=== PATIENT | female | born 1995 | race Asian ===

== ENCOUNTER 2022-08-26 11:04 | Day surgery (SDC) | payer BC ==
[2022-08-21 14:39] VITALS: BMI 20.7
[2022-08-25 10:23] LABS: Hemoglobin 12.1 g/dL (12.0-15.5); Mean Corpuscular HGB CONC 31.1 g/dL (32.0-36.0); Mean Platelet Volume 10.7 fl (7.4-10.4); Platelet Count 399 10x3/uL (150-450); RBC Distribution Width 14.5 % (11.5-14.5); Red Blood Cell (RBC) Count 5.26 10x6/uL (3.90-5.03); White Blood Cell (WBC) Count 7.6 10x3/uL (3.5-10.5)
[2022-08-25 11:08] LABS: BHCG - Serum Negative (NEGATIVE); Pregs Control Background? CLEAR/WHITE (CLR/WHITE); Pregs Control Bar Appear? YES (CONTROL BAR)
[2022-08-26] MEDS ORDERED: CeleCOXIB 100 MG CAP ONE (11:25)
[2022-08-26] MEDS ORDERED: Gabapentin 300 MG CAP ONE (11:26)
[2022-08-26] MEDS ORDERED: Famotidine/PF 20 mg/2ml Vial ONE (11:27)
[2022-08-26] MEDS ORDERED: Midazolam HCl 2 mg/2 ml Vial ONE (12:31)
[2022-08-26] MEDS ORDERED: PROPOFOL 40 ML ONE (12:31)
[2022-08-26] MEDS ORDERED: Fentanyl 100 MCG/2 ML VIAL ONE ×2 (12:31→14:29)
[2022-08-26] MEDS ORDERED: Dexamethasone 4 mg/ml Vial ONE (12:32)
[2022-08-26] MEDS ORDERED: Lidocaine 1% PF 5 ML VIAL ONE (12:32)
[2022-08-26] MEDS ORDERED: Ondansetron PF 4 MG/2 ML Vial ONE (12:32)
[2022-08-26] MEDS ORDERED: Ketorolac Tromethamine 30 MG/ML VIAL ONE (12:32)
[2022-08-26] MEDS ORDERED: Rocuronium Bromide 10 MG/ML (10ML VIAL) ONE (12:32)
[2022-08-26] MEDS ORDERED: Bupivacaine HCl 0.5%/Epinephrine 1:200,000/PF 30 ml Vial ONE (12:32)
[2022-08-26] MEDS ORDERED: CEFAZOLIN 2 GM VIAL ONE (12:54)
[2022-08-26] MEDS ORDERED: PHENYLEPHRINE-NS 100 MCG/ML 10 ML SYRINGE ONE (13:33)
[2022-08-26] MEDS ORDERED: Meperidine HCl/PF 25 MG/ML VIAL ONE (13:49)
[2022-08-26] MEDS ORDERED: SUGAMMADEX SODIUM 200 MG/2 ML VIAL ONE (13:49)
== END 2022-08-26 17:25 | disposition home or self-care (01) ==
LOC: CSHSDC 11:04
PROVIDERS: ATTEND Student in an Organized Health Care Education/Training Program
PROC: 0UB00ZZ Excision of Right Ovary, Open Approach (ICD-10-PCS; principal; 2022-08-26)
DX: D27.0 Benign neoplasm of right ovary (principal); G89.18 Other acute postprocedural pain; Z90.49 Acquired absence of other specified parts of digestive tract; Z79.899 Other long term (current) drug therapy
CPT/HCPCS: 36415; 84703; 85027; 86850; 86900; 86901; 88307; C1889; J1100; J1885; J2175; J2250; J2405; J2704; J3010; S0028